=== PATIENT | female | born 1980 | race Caucasian/White ===

== ENCOUNTER 2024-02-09 03:00 | Emergency (ER) | payer OTHER ==
[~2024-02-09] VITALS: Ht 175.3 cm; Wt 113.6 kg
[2024-02-09] MEDS ORDERED: PREM3 PO (03:05)
[2024-02-09 03:33] VITALS: TEMP 98.7
[2024-02-09] MEDS: MAG HYDROX/ALUMINUM HYD/SIMETH ES 30 ML SUSPENSION UDCUP PO ONE (04:03)
[2024-02-09] MEDS: FAMOTIDINE 20 MG TABLET PO ONE (04:03)
[2024-02-09 04:12] LABS: BASOPHILS % (AUTO) 0.5 % (0.0-2.0); HEMATOCRIT 40.1 % (36-46); HEMOGLOBIN 13.6 g/dL (12.0-16.0); LYMPHOCYTES # (AUTO) 1.6 K/uL (1.0-4.8); LYMPHOCYTES % (AUTO) 20.5 % (22.0-44.0); MEAN CORPUSCULAR HEMOGLOBIN 32.8 pg (26.0-34.0); MEAN CORPUSCULAR VOLUME 96 fL (80-100); MONOCYTES # (AUTO) 0.6 K/uL (0.1-1.0); MONOCYTES % (AUTO) 8.4 % (2.0-9.0); NEUTROPHILS # (AUTO) 5.3 K/uL (1.8-7.7); NEUTROPHILS % (AUTO) 68.6 % (40.0-70.0); PLATELET COUNT (AUTO) 239 K/uL (150-450); RED BLOOD CELL COUNT(AUTO) 4.16 MIL/uL (4.00-5.20); WHITE BLOOD COUNT (AUTO) 7.7 K/uL (4.5-11.0)
[2024-02-09 04:24] LABS: B-TYPE NATRIURETIC PEPTIDE 18 pg/mL (0-100)
[2024-02-09 04:30] LABS: ANION GAP 6 mmol/L (8-16); CALCIUM, TOTAL 7.6 mg/dL (8.8-10.5); CARBON DIOXIDE 26 mmol/L (22-29); CHLORIDE 107 mmol/L (98-107); CREATININE 0.81 mg/dL (0.60-1.30); GLOMERULAR FILTR. RATE CALC > 60 mL/min (>60); GLUCOSE,RANDOM 95 mg/dL (70-110); POTASSIUM 4.3 mmol/L (3.5-5.1); SODIUM SERUM 139 mmol/L (136-145); UREA NITROGEN, BLOOD 15 mg/dL (7-18)
[2024-02-09 04:33] LABS: PROTHROMBIN TIME 9.7 SEC (9.4-11.6)
[2024-02-09 04:38] LABS: TROPONIN I-HIGH SENSITIVITY 10 ng/L (<51)
[2024-02-09 04:54] LABS: ALANINE AMINOTRANSFERASE 58 U/L (12-78); ALBUMIN 3.3 g/dL (3.4-5.0); ALKALINE PHOSPHATASE 149 U/L (46-116); ASPARTATE AMINOTRANSFERASE 162 U/L (15-37); BILIRUBIN,TOTAL 0.3 mg/dL (0.1-1.0); CREATINE KINASE, TOTAL ONLY 114 U/L (26-192); TOTAL PROTEIN, SERUM 6.8 g/dL (6.4-8.2)
[2024-02-09 05:35] LABS: TROPONIN I-HIGH SENSITIVITY 12 ng/L (<51)
[2024-02-09 06:08] VITALS: BP 145/83; PULSE 81; RESP 16; O2SAT 97
== END 2024-02-09 06:12 | disposition home or self-care (01) ==
LOC: EMS 03:00
DX: R07.2 Precordial pain (principal); K21.9 Gastro-esophageal reflux disease without esophagitis; F17.210 Nicotine dependence, cigarettes, uncomplicated; Z87.442 Personal history of urinary calculi; Z90.710 Acquired absence of both cervix and uterus
CPT/HCPCS: 99285; 71045; 80053; 82550; 83880; 84484; 85025; 85610; 85730; 36415; 93005; G0480